=== PATIENT | female | born 1995 | race Caucasian/White ===

== ENCOUNTER 2017-06-19 22:16 | Emergency (ER) | payer OTHER ==
[~2017-06-19] VITALS: Ht 162.6 cm; Wt 88.9 kg
[2017-06-19 22:24] VITALS: BP 131/76
--- NOTE | 2017-06-19 22:30 | NUR ---
PT TAKEN TO BED 8.
--- NOTE | 2017-06-19 22:35 | NUR ---
PATIENT PRESENTS TO ED WITH c/o pain to left wrist, swollen, possible bug bite PT DENIES N/V/D; SKIN IS PINK/WARM/DRY; AAOX4 WITH EVEN AND STEADY GAIT; LUNGS CLEAR BL; HR EVEN AND REGULAR; PT DENIES ANY FEVER, CP, SOB, OR COUGH AT THIS TIME; PATIENT STATES PAIN OF 3/10 AT THIS TIME; VSS; PATIENT POSITIONED FOR COMFORT; HOB ELEVATED; BEDRAILS UP X2; BED DOWN. ER MD MADE AWARE OF PT STATUS.
[2017-06-19 23:12] VITALS: BP 131/76
== END 2017-06-19 23:12 | disposition home or self-care (01) ==
LOC: MED 22:16
DX: L03.114 Cellulitis of left upper limb (principal)
CPT/HCPCS: 99283

== ENCOUNTER 2018-04-14 10:59 | Emergency (ER) | payer SELFPAY ==
--- NOTE | 2018-04-14 11:05 | NUR ---
patient called to be triaged, per admitting, pt left to go see her PCP.
== END 2018-04-14 11:05 | disposition left against medical advice (07) ==
LOC: MED 10:59
DX: Z53.21 Procedure and treatment not carried out due to patient leaving prior to being seen by health care provider (principal)